=== PATIENT | male | born 1950 | race Caucasian/White ===

== ENCOUNTER 2020-04-20 16:47 | Observation (INO) | payer MEDICARE, OTHER ==
[2020-04-20 17:21] LABS: Hemoglobin 11.7 g/dL (14.0-18.0); Mean Corpuscular HGB CONC 33.8 g/dL (32.0-36.0); Mean Corpuscular Hemoglobin 31.3 pg (27.0-31.0); Mean Corpuscular Volume 92.7 fL (78.0-98.0); Mean Platelet Volume 8.3 fL (7.4-10.4); Platelet Count 108 thou/uL (130-400); RBC Distribution Width 15.2 % (11.5-14.5); Red Blood Cell (RBC) Count 3.73 mill/uL (4.70-6.10)
[2020-04-20 17:29] LABS: #Lymphocytes 0.7 thou/uL (1.20-3.40); #Monocytes 0.6 thou/uL (0.11-0.59); #Neutrophils 7.7 thou/uL (1.40-6.50); %Basophils 0.2 % (0.0-1.0); %Eosinophils 0.4 % (0.0-10.0); %Lymphocytes 7.3 % (21.0-51.0); %Monocytes 6.1 % (0.0-10.0)
--- NOTE | 2020-04-20 17:32 | CT ---
CT head noncontrast HISTORY: Syncope. FINDINGS: No comparison. There is no evidence of acute intracranial hemorrhage or infarct. The ventri cles appear normal in size, shape and position. There is no mass effect or shift of midline structures. Visualized paranasal sinuses remain well aerated. IMPRESSION : No abnormalities are demonstrated.
[2020-04-20 17:35] LABS: MDiff Complete? YES; Platelet Morphology Comment Appears Decreased; Polychromasia SLIGHT = 2-3 cells (100X) (0-2/hpf)
[2020-04-20 17:36] LABS: Bacteria/HPF None Seen HPF (None Seen); Bilirubin Negative (Negative); Blood, Urine 2+ (Negative); Clarity Clear (Clear); Glucose, Urine (Dipstick) Normal (Negative); Ketone, Urine 150 mg/dL (Negative); Leukocyte Negative Leu/uL (Negative); Nitrite Negative (Negative); Protein, Urine (Dipstick) 30 mg/dL (Neg-Trace); RBC/HPF Greater than 50 HPF (0-3); Specific Gravity, Urine 1.027 (1.002-1.036); Squamous Epithelial 0-3 HPF (0-3)
[2020-04-20 17:48] LABS: ALT (SGPT) 12 U/L (8-55); AST (SGOT) 13 U/L (5-34); Albumin 3.2 g/dL (3.4-4.8); Alkaline Phosphatase 58 U/L (40-110); Anion Gap 12 mmol/L (10-20); BUN (Urea Nitrogen) 18 mg/dL (8.4-25.7); Bilirubin, Total 1.3 mg/dL (0.2-1.2); CK (CPK) 21 U/L (30-200); Calc. Creatinine Clearance 0 mL/min (70-130); Calcium 6.4 mg/dL (7.8-10.44); Carbon Dioxide 16 mmol/L (23-31); Chloride 111 mmol/L (98-107); Estimated GFR-MDRD Greater than 90; Globulin 1.6 g/dL (2.4-3.5); Glucose 181 mg/dL (80-115); Potassium 3.2 mmol/L (3.5-5.1); Protein, Total 4.8 g/dL (5.8-8.1); Sodium 136 mmol/L (136-145)
--- NOTE | 2020-04-20 19:30 | RAD ---
SINGLE VIEW OF THE CHEST: 04/20/20 COMPARISON: 09/24/12 HISTORY: Altered mental status after being found in a house that was 110 degrees. FINDINGS: Single view of the chest shows a normal sized cardiomediastinal silhouette. There is no evidence of c onsolidation, mass, or pleural effusion. The bones are unremarkable. IMPRESSION: No evidence of acute cardiopulmonary disease. POS: EAA
[2020-04-20] MEDS ORDERED: Senokot S 8.6-50 MG TAB PO PRN (21:02)
[2020-04-20] MEDS ORDERED: Acetaminophen 325 MG TAB PO PRN (21:02)
[2020-04-20 22:57] VITALS: BMI 35.6
[2020-04-20] MEDS: Sodium Chloride 0.9% 1,000 ML IV SCH (23:22)
[2020-04-20] MEDS ORDERED: HumaLOG 300 UNITS/3 ML VIAL SC PRN (23:38)
[2020-04-20] MEDS ORDERED: Dextrose 50% Abboject 50 ML SYRINGE SLOW IVP PRN (23:38)
[2020-04-20] MEDS ORDERED: Dextrose 5% in Water 1,000 ML IV PRN (23:38)
--- NOTE | 2020-04-21 00:26 | HP ---
PRIMARY CARE PHYSICIAN: Dr. Wilcox CHIEF COMPLAINT: Altered mental status. HISTORY OF PRESENT ILLNESS: Mr. Felix is a very pleasant 69-year-old man who was brought to the emergency room after a neighbor called 911 after he noticed that Mr. Felix was a little confused and not acting himself. The patient reports that he called his neighbor because he needed some food and asked him to run and go get a couple of hamburgers for him. The patient reports that his air conditioner is out and that he has family coming on Thursday to help him fix it. He reports that it was not working today and he got overheated. He has a past medical history pertinent for hypertension and hyperlipidemia. EMS picked him up and brought him in, started IV fluids. Evidently, his rectal temperature was 106 when they brought him in. He was cooled with a cooling blanket. They started IV fluids. His altered mental status resolved after 2 L. ER physician called to admit him for observation, his altered mental status had returned to baseline. Workup in the ER was largely unremarkable. REVIEW OF SYSTEMS: The patient reports not feeling well, getting overheated today. Reports some chills. Denies any fever, abdominal pain, nausea, vomiting, or diarrhea. All systems are reviewed and are negative unless mentioned in the HPI or above. PAST MEDICAL HISTORY: Diabetes, hypertension, polio in the past, hepatitis in past. PAST SURGICAL HISTORY: Anal fistula surgery, lengthening of his Achilles tendon. PSYCHIATRIC HISTORY: None. SOCIAL HISTORY: Denies any alcohol or drug use. Does have a remote smoking history. ALLERGIES: TO PENICILLIN. HOME MEDICATIONS: 1. Amaryl 2 mg p.o. daily. 2. Victoza 1.6 mg subcu daily. 3. Losartan 25 mg p.o. daily. 4. Metformin 1000 mg p.o. b.i.d. 5. Actos 30 mg p.o. daily. 6. Pravachol 20 mg p.o. h.s. 7. Topiramate 50 mg p.o. daily. PHYSICAL EXAMINATION: VITAL SIGNS: Blood pressure 131/70, pulse is 97, respiratory rate is 20, temperature is 98.8, pO2 sats 100% on room air. CONSTITUTIONAL: He is alert and oriented to person, place, and time. He looks in no acute distress. HEAD: Atraumatic and normocephalic. EYES: Pupils are equal, round, and reactive to light. Extraocular muscles are intact. ENT: Mouth exam is normal. Mucous membranes are moist. NECK: Normal range of motion. Trachea is midline. RESPIRATORY/CHEST: Breath sounds are clear. Chest expansion is equal. CARDIOVASCULAR: Regular heart rate and rhythm. Heart sounds are normal. ABDOMEN: Nontender. Bowel sounds are heard. BACK: Normal inspection. No tenderness. EXTREMITIES: Upper extremity: Normal inspection. Normal range of motion. Radial pulses are normal. Lower extremity: Normal inspection, normal range of motion. Pedal pulses are normal. NEUROLOGICAL: The patient is oriented to person, place, and time. SKIN: Warm, dry, and normal color. DIAGNOSTIC STUDIES: EKG interpretation in ER shows sinus tachycardia with a rate of 123, [place] 148, QRS duration 84, QTc is 460. ST segments, T-waves are normal. ASSESSMENT AND PLAN: 1. Heat stroke with altered mental status, resolved. The patient will continue to receive IV fluids, normal saline, 75 mL per hour x2 bags. We will recheck labs in a.m. Temperature has come down to normal. 2. History of hypertension. We will restart his home medications. 3. History of diabetes type 2; a.c. h.s. Accu-Cheks. We will restart his metformin and Actos. Add sliding scale as needed for coverage. 4. History of hyperlipidemia. We will restart his home medications. 5. Deep venous thrombosis and gastrointestinal prophylaxis started. 6. Case discussed with Dr. Marquez. 7. Hospital course dependent on clinical findings. Job ID: [id number] [facility]
[2020-04-21 04:10] LABS: #Eosinphils 0.2 thou/uL (0.0-0.7); #Lymphocytes 1.9 thou/uL (1.20-3.40); #Monocytes 0.8 thou/uL (0.11-0.59); #Neutrophils 5.2 thou/uL (1.40-6.50); %Basophils 0.3 % (0.0-1.0); %Lymphocytes 23.4 % (21.0-51.0); %Neutrophils 64.4 % (42.0-75.0); Hemoglobin 12.8 g/dL (14.0-18.0); Mean Corpuscular HGB CONC 32.4 g/dL (32.0-36.0); Mean Corpuscular Hemoglobin 30.1 pg (27.0-31.0); Mean Platelet Volume 8.7 fL (7.4-10.4); Platelet Count 128 thou/uL (130-400); RBC Distribution Width 15.4 % (11.5-14.5); Red Blood Cell (RBC) Count 4.24 mill/uL (4.70-6.10)
[2020-04-21 04:45] LABS: Anion Gap 12 mmol/L (10-20); BUN (Urea Nitrogen) 18 mg/dL (8.4-25.7); Calc. Creatinine Clearance 142 mL/min (70-130); Calcium 8.1 mg/dL (7.8-10.44); Carbon Dioxide 21 mmol/L (23-31); Chloride 109 mmol/L (98-107); Estimated GFR-MDRD Greater than 90; Glucose 253 mg/dL (80-115); Potassium 3.6 mmol/L (3.5-5.1); Sodium 138 mmol/L (136-145)
[2020-04-21] MEDS: HumaLOG 300 UNITS/3 ML VIAL SC PRN ×2 (06:17→12:42)
[2020-04-21] MEDS: Glimepiride 2 MG TAB PO SCH (08:40)
[2020-04-21] MEDS: metFORMIN 500 MG TAB PO SCH ×2 (08:40→17:57)
[2020-04-21] MEDS: Losartan 25 MG TAB PO SCH (08:40)
[2020-04-21] MEDS: Topiramate 100 MG TAB PO SCH (08:41)
[2020-04-21] MEDS: Famotidine 20 MG TAB PO SCH ×2 (08:41→21:00)
[2020-04-21] MEDS: Sodium Chloride 0.9% 1,000 ML IV SCH (12:43)
--- NOTE | 2020-04-21 19:22 | PDOC.HOSPP ---
- Subjective Subjective: Seen and examined. Patient states that he is feeling much better. No further episodes of altered mental status. Patient states that he is having the air- conditioning fixed on Thursday. PT and OT evaluation requested to evaluate the patient's mobility, he does live alone and does not have great family support though he states he has many friends who can help him. - Objective Vital Signs & Weight: Vital Signs (12 hours) Temp Pulse Resp BP BP Pulse Ox 04/21/20 16:13 97.7 F 80 15 114/59 L 96 04/21/20 12:00 97.6 F 84 18 122/58 L 122/58 L 04/21/20 08:10 98 F 82 16 116/59 L 95 04/21/20 08:00 98.0 F 82 16 116/59 L 95 Weight Weight 241 lb I&O: 04/20/20 04/21/20 04/22/20 06:59 06:59 06:59 Intake Total 775 1570 Output Total 250 550 Balance 525 1020 Result Diagrams: 04/21/20 03:53 04/21/20 03:53 Radiology Reviewed by me: Yes Hospitalist ROS - Review of Systems All other systems reviewed; all pertinent +/- noted in HPI/Subj - Medication Medications: Active Medications Generic Name Dose Route Start Last Admin Trade Name Freq PRN Reason Stop Dose Admin Famotidine 20 mg 04/21/20 09:00 04/21/20 08:41 Pepcid PO 20 mg BID MARY Administration Glimepiride 2 mg 04/21/20 08:00 04/21/20 08:40 Amaryl PO 2 mg QAM-WM MARY Administration Sodium Chloride 1,000 mls @ 75 mls/hr 04/20/20 22:15 04/21/20 12:43 Normal Saline 0.9% IV 04/22/20 00:54 1,000 mls .[id number] MARY Administration Insulin Human Lispro 0 units 04/20/20 23:38 04/21/20 12:42 Humalog SC 2 unit .MILD SLIDING SCALE PRN Administration Mild Correctional Scale Losartan Potassium 25 mg 04/21/20 09:00 04/21/20 08:40 Cozaar PO 25 mg DAILY MARY Administration Metformin HCl 1,000 mg 04/21/20 08:00 04/21/20 17:57 Glucophage PO 1,000 mg BID-WM MARY Administration Topiramate 50 mg 04/21/20 09:00 04/21/20 08:41 Topamax PO 50 mg DAILY MARY Administration - Exam General Appearance: NAD, awake alert Eye: anicteric sclera ENT: normocephalic atraumatic, moist mucosa Neck: supple, symmetric, no lymphadenopathy Heart: no murmur, no gallops, no rubs Respiratory: CTAB, no wheezes, no rales, no ronchi Gastrointestinal: soft, non-tender, no guarding, no rigidity Extremities: no edema Skin: no lesions, no rashes Neurological: cranial nerve grossly intact, no focal deficits Musculoskeletal: generalized weakness Psychiatric: normal affect, normal behavior, A&O x 3 Hosp A/P (1) Heat stroke Code(s): T67.01XA - HEATSTROKE AND SUNSTROKE, INITIAL ENCOUNTER Status: Acute (2) DM (diabetes mellitus) Code(s): E11.9 - TYPE 2 DIABETES MELLITUS WITHOUT COMPLICATIONS Status: Acute (3) HTN (hypertension) Code(s): I10 - ESSENTIAL (PRIMARY) HYPERTENSION Status: Acute (4) HLD (hyperlipidemia) Code(s): E78.5 - HYPERLIPIDEMIA, UNSPECIFIED Status: Acute (5) Hepatitis Status: Acute - Plan Plan: medical unit with telemetry patient has significantly improved with IV fluid resuscitation no further episodes of optimal status we will have them evaluated by physical therapy and occupational therapy to assess his independent status, patient desires to go back to living independently alone continue other home medications is able blood pressure control blood sugar control G.I. prophylaxis DVT prophylaxis
[2020-04-21] MEDS ORDERED: Simvastatin 10 MG TAB PO SCH (21:00)
[2020-04-22] MEDS: HumaLOG 300 UNITS/3 ML VIAL SC PRN (06:11)
[2020-04-22] MEDS: Famotidine 20 MG TAB PO SCH (09:45)
[2020-04-22] MEDS: Topiramate 100 MG TAB PO SCH (09:45)
[2020-04-22] MEDS: Losartan 25 MG TAB PO SCH (09:45)
[2020-04-22] MEDS: metFORMIN 500 MG TAB PO SCH (09:45)
[2020-04-22] MEDS: Glimepiride 2 MG TAB PO SCH (09:45)
[2020-04-22 12:02] VITALS: TEMP 97.6
[2020-04-22 12:20] VITALS: BP 142/71
--- NOTE | 2020-04-23 02:55 | DIS ---
DATE OF ADMISSION: 04/20/2020 DATE OF DISCHARGE: 04/22/2020 REASON FOR HOSPITALIZATION: Heatstroke. SIGNIFICANT FINDINGS: The patient was admitted on 04/20/2020, after he was found in a house without air conditioning. He was found to be severely overheated and had altered mental status. There were reports of the patient had a temperature of greater than 106 per rectal by EMS on the scene. The patient had IV fluid resuscitation, cooling blankets, and a metabolic workup, and he had a complete recovery of his symptoms. I had the patient evaluated by Physical Therapy and Occupational Therapy who recommended the patient's physical strength recovered. The patient being alert and oriented x3 with good insight into his clinical condition, was recommended safe for discharge with close followup in the outpatient setting. CONDITION ON DISCHARGE: Stable. SPECIFIC INSTRUCTIONS FOR THE PATIENT/FAMILY: 1. The patient is recommended to avoid situations that would cause him overheating including houses that do not have air conditioning. 2. The patient is recommended to stay well hydrated while he is in elevated temperatures. 3. The patient recommended to take all medications as directed. 4. The patient is recommended to follow up with primary care physician in the next 5 to 7 days. 5. The patient recommended to return to acute care hospital immediately if signs or symptoms return, worsen, or any other new symptoms occur. 6. Greater than 33 minutes spent coordinating care and discharge process for this patient. Job ID: [id number]
== END 2020-04-22 13:00 | disposition home or self-care (01) ==
LOC: ERS 16:47 → 2NO 20:46
PROVIDERS: ADMIT Internal Medicine; ATTEND Internal Medicine
DX: T67.01XA Heatstroke and sunstroke, initial encounter (principal); I10 Essential (primary) hypertension; E11.9 Type 2 diabetes mellitus without complications; E78.5 Hyperlipidemia, unspecified; Z79.84 Long term (current) use of oral hypoglycemic drugs; Z79.899 Other long term (current) drug therapy; Z88.0 Allergy status to penicillin
CPT/HCPCS: 36415; 36416; 51701; 70450; 71045; 80048; 80053; 81003; 81015; 82550; 83605; 83880; 84484; 85025; 87040; 93005; 96360; G0378